=== PATIENT | male | born 1970 | race Caucasian/White ===

== ENCOUNTER 2019-02-02 11:58 | Emergency (ER) | payer OTHER ==
[2019-02-02] MEDS ORDERED: Ketorolac 30 MG/ML SDV IVPUSH ONE ×2 (12:22→13:07)
[2019-02-02] MEDS ORDERED: Tamsulosin 0.4 MG Cap.ER PO ONE (12:22)
[2019-02-02] MEDS ORDERED: Ondansetron 4 MG/2 ML SDV IVPUSH ONE ×2 (12:44→13:07)
--- NOTE | 2019-02-02 12:44 | EDM.PDOC ---
ED HPI GENERAL MEDICAL PROBLEM - General Chief Complaint: Flank Pain Stated Complaint: PAIN IN STOMACH AREA Time Seen by Provider: 02/02/19 12:02 - History of Present Illness INITIAL COMMENTS - FREE TEXT/NARRATIVE: hx of kidney stones pain came on suddenly this am left flank area with wrap around Nausea and pain Denies burning, frequency or urgency Unsure of blood in urine Has constipation; been 2-3 days since last BM Left Flank Pain Score (Numeric/FACES): 4 - Related Data Allergies Allergy/AdvReac Type Severity Reaction Status Date / Time No Known Allergies Allergy Verified 02/02/19 12:13 Home Meds: Home Meds Ketorolac [Toradol] 10 mg PO TID PRN #15 tab 02/02/19 [Rx] Lisinopril 10 mg PO DAILY 02/02/19 [History] Ondansetron [Zofran ODT] 4 mg PO Q6H PRN #12 tab.dis 02/02/19 [Rx] SitaGLIPtin [Januvia] 50 mg PO DAILY 02/02/19 [History] Tamsulosin HCl [Flomax] 0.4 mg PO DAILY #5 cap.er.24h 02/02/19 [Rx] atorvaSTATin [Lipitor] 40 mg PO BEDTIME 02/02/19 [History] glipiZIDE [Glipizide ER] 10 mg PO DAILY 02/02/19 [History] metFORMIN [Glucophage XR] 2,000 mg PO WITHDINNER 02/02/19 [History] Past Medical History HEENT History: Reports: Impaired Vision Cardiovascular History: Reports: High Cholesterol, Hypertension Genitourinary History: Reports: Renal Calculus Musculoskeletal History: Reports: Fracture Other Musculoskeletal History: r wrist Endocrine/Metabolic History: Reports: Diabetes, Type II, Obesity/BMI 30+ - Infectious Disease History Infectious Disease History: Reports: Chicken Pox - Past Surgical History GI Surgical History: Reports: Appendectomy, Colonoscopy Male Surgical History: Reports: Renal Calculus Social & Family History - Tobacco Use Smoking Status *Q: Never Smoker Second Hand Smoke Exposure: No - Caffeine Use Caffeine Use: Reports: Soda - Alcohol Use Days Per Week of Alcohol Use: 0 - Recreational Drug Use Recreational Drug Use: No ED ROS GENERAL - Review of Systems Review Of Systems: See Below Constitutional: Reports: No Symptoms Respiratory: Reports: No Symptoms Cardiovascular: Reports: No Symptoms GI/Abdominal: Reports: Nausea, Other (left flank pain) : Reports: Flank Pain Skin: Reports: No Symptoms Neurological: Reports: No Symptoms Psychiatric: Reports: No Symptoms ED EXAM, GENERAL - Physical Exam Exam: See Below Exam Limited By: No Limitations General Appearance: Alert, WD/WN, Moderate Distress Head: Atraumatic, Normocephalic Neck: Normal Inspection, Non-Tender, Full Range of Motion Respiratory/Chest: No Respiratory Distress, Lungs Clear, Normal Breath Sounds Cardiovascular: Normal Peripheral Pulses, Regular Rate, Rhythm GI/Abdominal: Normal Bowel Sounds, Soft, No Distention, Other (left cva tenderness) Back Exam: Normal Inspection, Full Range of Motion Extremities: Normal Inspection, Normal Range of Motion, Non-Tender Neurological: Alert, Oriented, CN II-XII Intact, Normal Cognition, Normal Gait Psychiatric: Normal Affect, Normal Mood Skin Exam: Warm, Dry, Intact Course - Orders/Labs/Meds Labs: Laboratory Tests 02/02/19 Range/Units 12:29 Urine Color Yellow Urine Appearance Cloudy Urine pH 6.0 (4.5-8.0) Ur Specific [place] 1.020 (1.008-1.030) Urine Protein Negative (NEGATIVE) mg/dL Urine Glucose (UA) >1000 H (NEGATIVE) mg/dL Urine Ketones 50 H (NEGATIVE) mg/dL Urine Occult Blood Large (NEGATIVE) Urine Nitrite Negative (NEGAITVE) Urine Bilirubin Negative (NEGATIVE) Urine Urobilinogen Normal (NORMAL) mg/dL Ur Leukocyte Esterase Negative (NEGATIVE) Urine RBC 10-20 H (0-5) Urine WBC Not seen (0-5) Ur Epithelial Cells Rare Amorphous Sediment Rare Urine Bacteria Few Urine Mucus Rare Meds: Medications Discontinued Medications Generic Name Dose Route Start Last Admin Trade Name Freq PRN Reason Stop Dose Admin Ketorolac Tromethamine 30 mg 02/02/19 12:22 02/02/19 12:41 Toradol IVPUSH 02/02/19 12:23 30 mg ONETIME ONE Administration Ketorolac Tromethamine 30 mg 02/02/19 13:07 02/02/19 13:25 Toradol IVPUSH 02/02/19 13:08 30 mg ONETIME ONE Administration Ondansetron HCl 4 mg 02/02/19 12:44 02/02/19 13:26 Zofran IVPUSH 02/02/19 12:45 Not Given ONETIME ONE Ondansetron HCl 4 mg 02/02/19 13:07 02/02/19 13:27 Zofran IVPUSH 02/02/19 13:08 Not Given ONETIME ONE Tamsulosin HCl 0.4 mg 02/02/19 12:22 02/02/19 12:41 Flomax PO 02/02/19 12:23 0.4 mg ONETIME ONE Administration - Re-Assessments/Exams Free Text/Narrative Re-Assessment/Exam: 02/02/19 13:30 Reviewed labs with patient; he declines KUB/or CT; states this feels like his previous kidney stone He would like to drive home ([place]) He hasn't had any pain medication (narcotic ); I think this is reasonable; he is feeling good presently. Rx sent for flomax, toradol and zofran; Will follow up in his ER over the weekend if pain cannot be managed. Departure - Departure Time of Disposition: 13:08 Disposition: Home, Self-Care 01 Condition: Good Clinical Impression: Left flank pain - Discharge Information *PRESCRIPTION DRUG MONITORING PROGRAM REVIEWED*: Not Applicable *COPY OF PRESCRIPTION DRUG MONITORING REPORT IN PATIENT PAUL: Not Applicable Prescriptions: Ketorolac [Toradol] 10 mg PO TID PRN #15 tab PRN Reason: Pain Ondansetron [Zofran ODT] 4 mg PO Q6H PRN #12 tab.dis PRN Reason: Nausea Tamsulosin HCl [Flomax] 0.4 mg PO DAILY #5 cap.er.24h Instructions: Kidney Stones, [id number], Flank Pain, Adult, [id number] Referrals: PCP,None [Primary Care Provider] - Forms: ED Department Discharge Additional Instructions: You can take your next dose of Toradol at 9 pm this evening. You can take your next dose of zofran (for nausea) at 9 pm this evening. Drink plenty of water Ice pack may help If your pain isn't improving, you will need to return to the ER. - Problem List & Annotations (1) Left flank pain SNOMED Code(s): 601316099 Code(s): R10.9 - UNSPECIFIED ABDOMINAL PAIN Status: Acute Priority: Medium Current Visit: Yes
== END 2019-02-02 13:59 | disposition home or self-care (01) ==
LOC: JP.ED 11:58
DX: R10.9 Unspecified abdominal pain (principal); I10 Essential (primary) hypertension; E11.9 Type 2 diabetes mellitus without complications; E66.9 Obesity, unspecified; Z79.84 Long term (current) use of oral hypoglycemic drugs; Z90.49 Acquired absence of other specified parts of digestive tract; Z79.899 Other long term (current) drug therapy
CPT/HCPCS: 81001; 96374; 96376; 99284; A9270; J1885